=== PATIENT | female | born 1940 | race Two or more races ===

== ENCOUNTER 2017-12-10 10:03 | Outpatient (CLI) | payer OTHER | END 2017-12-10 10:14 | disposition home or self-care (01) | LOC: MRI 10:03 | DX: M75.81 Other shoulder lesions, right shoulder (principal) | CPT/HCPCS: 73221 ==

== ENCOUNTER 2018-06-12 14:50 | Outpatient (CLI) | payer OTHER | END 2018-06-12 14:57 | disposition home or self-care (01) | LOC: RAD 501 14:50 | DX: M15.0 Primary generalized (osteo)arthritis (principal) ==

== ENCOUNTER 2021-04-11 12:11 | Outpatient (CLI) | payer OTHER | END 2021-04-11 15:08 | disposition home or self-care (01) | LOC: MAMO-SONO 12:11 | PROVIDERS: ATTEND Specialist | DX: N64.59 Other signs and symptoms in breast (principal); Z12.31 Encounter for screening mammogram for malignant neoplasm of breast; Z87.898 Personal history of other specified conditions ==

== ENCOUNTER 2023-04-12 09:52 | Outpatient (CLI) | payer OTHER | END 2023-04-12 09:57 | disposition home or self-care (01) | LOC: RAD 09:52 | PROVIDERS: ATTEND Internal Medicine Rheumatology | DX: M15.0 Primary generalized (osteo)arthritis (principal); S72.92XA Unspecified fracture of left femur, initial encounter for closed fracture ==

== ENCOUNTER 2024-04-14 10:18 | Outpatient (CLI) | payer OTHER | END 2024-04-14 10:27 | disposition home or self-care (01) | LOC: MAMO-SONO 10:18 | PROVIDERS: ATTEND Specialist | DX: N63.0 Unspecified lump in unspecified breast (principal); Z12.31 Encounter for screening mammogram for malignant neoplasm of breast ==

== ENCOUNTER → 2024-10-29 | Outpatient (CLI) | payer OTHER | END | disposition home or self-care (01) | LOC: RAD 11:14 | PROVIDERS: ATTEND Physical Medicine & Rehabilitation | DX: M25.552 Pain in left hip (principal); M79.662 Pain in left lower leg ==

== ENCOUNTER 2025-04-13 13:29 | Outpatient (CLI) | payer OTHER | END 2025-04-13 13:33 | disposition home or self-care (01) | LOC: RAD 13:29 | PROVIDERS: ATTEND Internal Medicine Rheumatology | DX: M15.0 Primary generalized (osteo)arthritis (principal) ==

== ENCOUNTER 2025-06-17 13:16 | Outpatient (CLI) | payer OTHER | END 2025-06-17 13:17 | disposition home or self-care (01) | LOC: RAD 13:16 | PROVIDERS: ATTEND Physical Medicine & Rehabilitation | DX: R07.89 Other chest pain (principal) ==